=== PATIENT | female | born 1970 | race Caucasian/White ===

== ENCOUNTER → 2024-06-30 10:37 | Outpatient (REF) | payer OTHER, SELFPAY | LOC: HWWDC 10:37 | PROVIDERS: ATTENDING PHYSICIAN Obstetrics & Gynecology; FAMILY PHYSICIAN Family Medicine | DX: Z12.31 Encounter for screening mammogram for malignant neoplasm of breast (principal) | CPT/HCPCS: 77063; 77067 ==

== ENCOUNTER → 2024-08-10 09:42 | Outpatient (REF) | payer OTHER, SELFPAY | LOC: RCS 09:42 | PROVIDERS: ATTENDING PHYSICIAN Physician Assistant | DX: H81.12 Benign paroxysmal vertigo, left ear (principal); M54.9 Dorsalgia, unspecified; I10 Essential (primary) hypertension | CPT/HCPCS: 93017; 93350 ==